=== PATIENT | female | born 2005 | race Caucasian/White ===

== ENCOUNTER → 2024-11-24 10:53 | Outpatient (REF) | payer OTHER, SELFPAY | LOC: RAD 10:53 | PROVIDERS: ATTENDING PHYSICIAN Nurse Practitioner Adult Health | DX: M54.50 Low back pain, unspecified (principal); R10.31 Right lower quadrant pain | CPT/HCPCS: 76700 ==

== ENCOUNTER → 2025-05-04 10:15 | Outpatient (REF) | payer OTHER, SELFPAY | LOC: HWRAD 10:15 | PROVIDERS: ATTENDING PHYSICIAN Nurse Practitioner Family; FAMILY PHYSICIAN Family Medicine | DX: R10.2 Pelvic and perineal pain (principal) | CPT/HCPCS: 76830; 76856 ==